=== PATIENT | female | born 1990 | race Caucasian/White ===

== ENCOUNTER → 2019-03-15 12:44 | Outpatient (BNVA) | payer MEDICAID, SELFPAY | PROVIDERS: Family Provider Internal Medicine; PCP Internal Medicine; Visit Provider Social Worker Clinical | DX: F63.81 Intermittent explosive disorder (principal) | CPT/HCPCS: 90834 ==

== ENCOUNTER 2019-03-25 10:59 | Outpatient (CLI) | payer MEDICAID, SELFPAY ==
[2019-03-25 12:16] LABS: Lithium 0.6 mmol/L (0.6-1.2)
== END 2019-03-25 11:00 | disposition home or self-care (01) ==
PROVIDERS: Nurse Practitioner; Family Provider Internal Medicine; PCP Internal Medicine; Visit Provider Family Medicine
DX: F63.81 Intermittent explosive disorder (principal)
CPT/HCPCS: 80178

== ENCOUNTER → 2019-04-05 12:51 | Outpatient (BNVA) | payer MEDICAID, SELFPAY | PROVIDERS: Family Provider Internal Medicine; PCP Internal Medicine; Visit Provider Social Worker Clinical | DX: F63.81 Intermittent explosive disorder (principal); F70 Mild intellectual disabilities | CPT/HCPCS: 90834 ==

== ENCOUNTER → 2019-05-11 13:29 | Outpatient (BNVA) | payer MEDICAID, SELFPAY | PROVIDERS: Family Provider Internal Medicine; PCP Internal Medicine; Visit Provider Nurse Practitioner | DX: F70 Mild intellectual disabilities (principal); F63.81 Intermittent explosive disorder | CPT/HCPCS: 99213 ==

== ENCOUNTER → 2019-05-20 13:44 | Outpatient (BNVA) | payer MEDICAID, SELFPAY | PROVIDERS: Family Provider Internal Medicine; PCP Internal Medicine; Visit Provider Social Worker Clinical | DX: F63.81 Intermittent explosive disorder (principal); F70 Mild intellectual disabilities | CPT/HCPCS: 90834 ==

== ENCOUNTER → 2019-06-09 13:27 | Outpatient (BNVA) | payer MEDICAID, SELFPAY | PROVIDERS: Family Provider Internal Medicine; PCP Internal Medicine; Visit Provider Social Worker Clinical | DX: F63.81 Intermittent explosive disorder (principal); F70 Mild intellectual disabilities | CPT/HCPCS: 90832 ==

== ENCOUNTER → 2019-06-28 08:22 | Outpatient (BNVA) | payer MEDICAID, SELFPAY | PROVIDERS: Family Provider Internal Medicine; PCP Internal Medicine; Visit Provider Social Worker Clinical | DX: F63.81 Intermittent explosive disorder (principal); F70 Mild intellectual disabilities | CPT/HCPCS: 90834 ==

== ENCOUNTER → 2019-07-20 08:07 | Outpatient (BNVA) | payer MEDICAID, SELFPAY | PROVIDERS: Family Provider Internal Medicine; PCP Internal Medicine; Visit Provider Social Worker Clinical | DX: F63.81 Intermittent explosive disorder (principal); F70 Mild intellectual disabilities | CPT/HCPCS: 90834 ==

== ENCOUNTER → 2019-08-05 08:27 | Outpatient (BNVA) | payer MEDICAID, SELFPAY | PROVIDERS: Family Provider Internal Medicine; PCP Internal Medicine; Visit Provider Social Worker Clinical | DX: F63.81 Intermittent explosive disorder (principal); F70 Mild intellectual disabilities | CPT/HCPCS: 90834 ==

== ENCOUNTER → 2019-09-01 07:49 | Outpatient (BNVA) | payer MEDICAID, SELFPAY | PROVIDERS: Family Provider Internal Medicine; PCP Internal Medicine; Visit Provider Social Worker Clinical | DX: F63.81 Intermittent explosive disorder (principal); F70 Mild intellectual disabilities | CPT/HCPCS: 90834 ==

== ENCOUNTER 2019-09-19 12:17 | Emergency (ER) | payer MEDICAID, SELFPAY ==
[2019-09-19 12:35] VITALS: BP 155/100; PULSE 74; RESP 18; TEMP 36.6; O2SAT 100; BMI 47.8
--- NOTE | 2019-09-19 12:37 | XRR_ITS ---
PROCEDURE INFORMATION: Exam: XR Left Ankle Exam date and time: 09/19/2019 12:38 PM Age: 28 years old Clinical indication: Injury or trauma; Fall; Initial encounter; Blunt trauma; Ankle; Left TECHNIQUE: Imaging protocol: XR Left ankle. Views: 3 or more views. COMPARISON: No relevant prior studies available. FINDINGS: Bones/joints: No acute fracture. No dislocation. Normal bone mineralization. No joint effusion. Small calcified enthesophyte at the Achilles tendon insertion. Small plantar calcaneal bone spur. Soft tissues: No soft tissue swelling. No radiopaque foreign body. XR/XR ankle LT min 3V* [id number] IMPRESSION: 1. No acute fracture. Followup imaging recommended in 7-14 days if clinical concern for fracture persists. 2. Incidental/nonacute findings are listed in the report.
--- NOTE | 2019-09-19 12:40 | ED_ITS ---
HPI - Extremity Injury (Lower) General: Chief Complaint: Extremity Injury, Lower Stated Complaint: left leg pain/fall Time Seen by Provider: 09/19/19 12:34 Source: patient Mode of arrival: ambulatory Limitations: no limitations History of Present Illness: HPI Narrative: 28-year-old female who states she is going out to get the mail and stepped on a ledge 2 days ago and twisted her left ankle. States she is continued to have ankle pain since then and sprained that ankle recently. She states she is able to walk on it but it is painful. complaint: ankle injury Review of Systems Const: Denies: fever(s), chills, body aches or change in appetite Eyes: Denies: blurry vision or eye discomfort ENMT: Denies: throat pain or dental pain Card: Denies: chest pain Resp: Denies: dyspnea GI: Denies: abdominal pain, nausea, vomiting or diarrhea : Denies: dysuria Musc: Reports: joint pain Skin/Breast: Denies: rash Neuro: Denies: headache(s) Psych: Denies: depression Malvin/Lymph: Denies: easy bruising All/Imm: Denies: urticaria PFS ED PFSH: Medical History (Updated 09/19/19 @ 12:54 by Juanjose Verdin MD) Intermittent explosive disorder Mild intellectual disabilities Social History (Updated 05/11/19 @ 13:49 by Kaci Dorantes LPN) Smoking and tobacco status: never smoked Current gender identity: Female Physical Exam Const: COMMON NORMALS: no acute distress, patient oriented x3 and healthy appearing HENMT: COMMON NORMALS: normocephalic and atraumatic HEAD & SCALP: normocephalic and atraumatic Eye: COMMON NORMALS: Equal, round and reactive pupils present and EOMs intact bilaterally PUPIL: Yes Equal, round and reactive pupils present Neck/C-Spine: COMMON NORMALS: full ROM and supple Chest: COMMONS NORMALS: normal inspection of the chest and normal palpation of entire chest wall Resp: COMMON NORMALS: normal respiratory effort, No retractions, No use of accessory muscles and clear to auscultation bilaterally AUSCULTATION: clear to auscultation bilaterally Cardio: COMMON NORMALS: regular rate, regular rhythm and No murmurs present (Cardio) RATE: regular rate RHYTHM: regular rhythm GI: COMMON NORMALS: Normal to inspection, nondistended, normoactive bowel sounds present, Soft to palpation, non-tender and no masses PALPATION: Yes Soft to palpation Extremity: COMMON NORMALS: normal to inspection and full ROM NARRATIVE EXTREMITY EXAM: Tender over left lateral ankle Neuro: COMMON NORMALS: patient oriented x3, moves all extremities and no focal motor deficits Psych: COMMON NORMALS: mental status grossly normal, Normal thought process present and cooperative THOUGHT PROCESS: Normal thought process present Skin: COMMON NORMALS: no rashes or lesions noted and no wounds GENERAL SKIN EXAM: no rashes or lesions noted Course Vital Signs: Vital signs: Vital Signs Temperature 97.9 F 09/19/19 12:35 Pulse Rate 74 09/19/19 12:35 Respiratory Rate 18 09/19/19 12:35 Blood Pressure 155/100 09/19/19 12:35 Pulse Oximetry 100 09/19/19 12:35 MDM - Extremity Injury (Lower) MDM Narrative: Medical decision making narrative: Sunni presents here with an ankle sprain. X-ray here shows no fracture. Patient is well-appearing here and we will place an Baltazar wrap and she is stable for discharge. She is to follow-up with worsening. Imaging Data^: xr ankle: My impression: no acute abnormality Discharge Plan Discharge Patient Disposition: Home, Self-Care Clinical Impression: Ankle sprain and strain Condition: Stable Prescriptions: New Naprosyn 500 mg tablet 500 mg PO BID PRN (Reason: pain) Qty: 20 RF: 0 No Action Latuda 20 mg tablet 20 mg PO DAILY RF: 0 potassium chloride 20 mEq tablet extended release 20 meq PO DAILY RF: 0 prazosin 2 mg capsule 2 mg PO .at bed RF: 0 lithium carbonate 300 mg capsule 300 mg PO .in am RF: 0 lithium carbonate 600 mg capsule 600 mg PO .at bed RF: 0 lamotrigine [Lamictal] 200 mg tablet 200 mg PO BID RF: 0 lamotrigine [Lamictal] 100 mg tablet 50 mg PO BID RF: 0 Discharge Orders: Discharge Order (Routine); Ordered 09/19/19 Ordered By: Juanjose Verdin Referrals: Rickey Zacarias MD [Primary Care Provider] - 1-3 days Discharge Diet: Advance as tolerated Discharge Activity: Resume usual activity Coding Level of Care Code ED Linecasting Machine Keyboard Operator for Chg Fwd Exam Comprehensive
[2019-09-19] MEDS: naproxen 500 mg Tablet PO (13:03)
[2019-09-19 13:06] VITALS: BP 154/100; PULSE 75; PULSE 76; RESP 18; O2SAT 96
[2019-09-19 13:26] VITALS: BP 155/100; PULSE 75; RESP 18; O2SAT 96
== END 2019-09-19 13:29 | disposition home or self-care (01) ==
LOC: ER 12:58
PROVIDERS: Emergency Provider Emergency Medicine; PCP Internal Medicine
DX: S93.402A Sprain of unspecified ligament of left ankle, initial encounter (principal); S96.912A Strain of unspecified muscle and tendon at ankle and foot level, left foot, initial encounter; X50.1XXA Overexertion from prolonged static or awkward postures, initial encounter
CPT/HCPCS: 12345; 73610; 99281; 99283

== ENCOUNTER → 2019-09-30 07:51 | Outpatient (BNVA) | payer MEDICAID, SELFPAY | PROVIDERS: PCP Internal Medicine; Visit Provider Social Worker Clinical | DX: F63.81 Intermittent explosive disorder (principal); F70 Mild intellectual disabilities | CPT/HCPCS: 90834 ==

== ENCOUNTER → 2019-10-05 07:41 | Outpatient (BNVA) | payer MEDICAID, SELFPAY | PROVIDERS: PCP Internal Medicine; Visit Provider Nurse Practitioner | DX: F63.81 Intermittent explosive disorder (principal); F70 Mild intellectual disabilities | CPT/HCPCS: 99213 ==

== ENCOUNTER 2019-10-06 09:37 | Outpatient (CLI) | payer MEDICAID, SELFPAY ==
[2019-10-06 10:47] LABS: Lithium 0.7 mmol/L (0.6-1.2)
== END 2019-10-06 09:38 | disposition home or self-care (01) ==
LOC: LAB 09:42
PROVIDERS: PCP Internal Medicine; Visit Provider Nurse Practitioner
DX: F63.81 Intermittent explosive disorder (principal); F70 Mild intellectual disabilities
CPT/HCPCS: 80178

== ENCOUNTER → 2019-10-28 14:07 | Outpatient (BNVA) | payer MEDICAID, SELFPAY | PROVIDERS: PCP Internal Medicine; Visit Provider Social Worker Clinical | DX: F63.81 Intermittent explosive disorder (principal); F70 Mild intellectual disabilities | CPT/HCPCS: 90832 ==

== ENCOUNTER → 2019-11-10 10:00 | Outpatient (BNVA) | payer MEDICAID, SELFPAY | PROVIDERS: PCP Internal Medicine; Visit Provider Social Worker Clinical | DX: F63.81 Intermittent explosive disorder (principal); F70 Mild intellectual disabilities | CPT/HCPCS: 90834 ==

== ENCOUNTER → 2019-11-29 14:00 | Outpatient (BNVA) | payer MEDICAID, SELFPAY | PROVIDERS: PCP Internal Medicine; Visit Provider Nurse Practitioner Family | DX: J06.9 Acute upper respiratory infection, unspecified (principal); Z20.828 Contact with and (suspected) exposure to other viral communicable diseases | CPT/HCPCS: 87635 ==

== ENCOUNTER → 2019-12-29 10:48 | Outpatient (BNVA) | payer MEDICAID, SELFPAY | PROVIDERS: PCP Internal Medicine; Visit Provider Social Worker Clinical | DX: F63.81 Intermittent explosive disorder (principal); F70 Mild intellectual disabilities | CPT/HCPCS: 90834 ==

== ENCOUNTER → 2020-01-19 12:42 | Outpatient (BNVA) | payer MEDICAID, SELFPAY | PROVIDERS: PCP Internal Medicine; Visit Provider Social Worker Clinical | DX: F63.81 Intermittent explosive disorder (principal); F70 Mild intellectual disabilities | CPT/HCPCS: 90834 ==

== ENCOUNTER → 2020-02-21 08:38 | Outpatient (BNVA) | payer MEDICAID, SELFPAY | PROVIDERS: PCP Internal Medicine; Visit Provider Social Worker Clinical | DX: F63.81 Intermittent explosive disorder (principal); F70 Mild intellectual disabilities | CPT/HCPCS: 90834 ==

== ENCOUNTER → 2020-03-20 12:40 | Outpatient (BNVA) | payer MEDICAID, SELFPAY | PROVIDERS: PCP Internal Medicine; Visit Provider Social Worker Clinical | DX: F63.81 Intermittent explosive disorder (principal); F70 Mild intellectual disabilities | CPT/HCPCS: 90834 ==

== ENCOUNTER → 2020-04-06 12:47 | Outpatient (BNVA) | payer MEDICAID, SELFPAY | PROVIDERS: PCP Internal Medicine; Visit Provider Social Worker Clinical | DX: F63.81 Intermittent explosive disorder (principal); F70 Mild intellectual disabilities | CPT/HCPCS: 90834 ==

== ENCOUNTER 2020-04-07 09:02 | Outpatient (CLI) | payer MEDICAID, SELFPAY ==
[2020-04-07 13:08] LABS: Lithium 0.7 mmol/L (0.6-1.2)
== END 2020-04-07 09:03 | disposition home or self-care (01) ==
LOC: LAB 09:16
PROVIDERS: PCP Internal Medicine; Visit Provider Nurse Practitioner
DX: Z79.899 Other long term (current) drug therapy (principal)
CPT/HCPCS: 36415; 80178

== ENCOUNTER → 2020-04-27 08:43 | Outpatient (BNVA) | payer MEDICAID, SELFPAY | PROVIDERS: PCP Internal Medicine; Visit Provider Social Worker Clinical | DX: F63.81 Intermittent explosive disorder (principal); F70 Mild intellectual disabilities | CPT/HCPCS: 90832 ==

== ENCOUNTER → 2020-05-18 12:42 | Outpatient (BNVA) | payer MEDICAID, SELFPAY | PROVIDERS: PCP Internal Medicine; Visit Provider Social Worker Clinical | DX: F63.81 Intermittent explosive disorder (principal); F70 Mild intellectual disabilities | CPT/HCPCS: 90834 ==

== ENCOUNTER → 2020-06-21 11:47 | Outpatient (BNVA) | payer MEDICAID, SELFPAY | PROVIDERS: PCP Internal Medicine; Visit Provider Social Worker Clinical | DX: F63.81 Intermittent explosive disorder (principal); F70 Mild intellectual disabilities | CPT/HCPCS: 90834 ==

== ENCOUNTER → 2020-07-19 12:35 | Outpatient (BNVA) | payer MEDICAID, SELFPAY | PROVIDERS: PCP Internal Medicine; Visit Provider Social Worker Clinical | DX: F63.81 Intermittent explosive disorder (principal); F70 Mild intellectual disabilities | CPT/HCPCS: 90834 ==

== ENCOUNTER → 2020-08-15 13:37 | Outpatient (BNVA) | payer MEDICAID, SELFPAY | PROVIDERS: PCP Internal Medicine; Visit Provider Social Worker Clinical | DX: F63.81 Intermittent explosive disorder (principal); F70 Mild intellectual disabilities | CPT/HCPCS: 90834 ==

== ENCOUNTER → 2020-08-17 14:11 | Outpatient (BNVA) | payer MEDICAID, SELFPAY | PROVIDERS: PCP Internal Medicine; Visit Provider Nurse Practitioner | DX: F70 Mild intellectual disabilities (principal); F63.81 Intermittent explosive disorder | CPT/HCPCS: 99214 ==

== ENCOUNTER → 2020-09-14 13:44 | Outpatient (BNVA) | payer MEDICAID, SELFPAY | PROVIDERS: PCP Internal Medicine; Visit Provider Social Worker Clinical | DX: F63.81 Intermittent explosive disorder (principal); F70 Mild intellectual disabilities | CPT/HCPCS: 90834 ==

== ENCOUNTER → 2020-10-17 10:33 | Outpatient (BNVA) | payer MEDICAID, SELFPAY | PROVIDERS: PCP Internal Medicine; Visit Provider Social Worker Clinical | DX: F63.81 Intermittent explosive disorder (principal); F70 Mild intellectual disabilities | CPT/HCPCS: 90834; 80178 ==

== ENCOUNTER → 2020-11-07 14:00 | Outpatient (BNVA) | payer MEDICAID, SELFPAY | PROVIDERS: PCP Internal Medicine; Visit Provider Social Worker Clinical | DX: F63.81 Intermittent explosive disorder (principal); F70 Mild intellectual disabilities | CPT/HCPCS: 90832 ==

== ENCOUNTER → 2020-11-28 12:52 | Outpatient (BNVA) | payer MEDICAID, SELFPAY | PROVIDERS: PCP Internal Medicine; Visit Provider Social Worker Clinical | DX: F63.81 Intermittent explosive disorder (principal); F70 Mild intellectual disabilities | CPT/HCPCS: 90834 ==

== ENCOUNTER → 2020-12-27 12:42 | Outpatient (BNVA) | payer MEDICAID, SELFPAY | PROVIDERS: PCP Internal Medicine; Visit Provider Social Worker Clinical | DX: F63.81 Intermittent explosive disorder (principal); F70 Mild intellectual disabilities | CPT/HCPCS: 90834 ==

== ENCOUNTER → 2021-01-16 13:55 | Outpatient (BNVA) | payer MEDICAID, SELFPAY | PROVIDERS: PCP Internal Medicine; Visit Provider Social Worker Clinical | DX: F63.81 Intermittent explosive disorder (principal); F70 Mild intellectual disabilities | CPT/HCPCS: 90791 ==

== ENCOUNTER → 2021-02-08 13:20 | Outpatient (BNVA) | payer MEDICAID, SELFPAY | PROVIDERS: PCP Internal Medicine; Visit Provider Nurse Practitioner | DX: F63.81 Intermittent explosive disorder (principal); F70 Mild intellectual disabilities | CPT/HCPCS: 99214 ==

== ENCOUNTER → 2021-02-14 10:25 | Outpatient (BNVA) | payer MEDICAID, SELFPAY | PROVIDERS: PCP Internal Medicine; Visit Provider Internal Medicine | DX: F70 Mild intellectual disabilities (principal) | CPT/HCPCS: 80053; 80061; 83036; 84443 ==

== ENCOUNTER → 2021-02-15 13:50 | Outpatient (BNVA) | payer MEDICAID, SELFPAY | PROVIDERS: PCP Internal Medicine; Visit Provider Social Worker Clinical | DX: F63.81 Intermittent explosive disorder (principal); F70 Mild intellectual disabilities | CPT/HCPCS: 90834 ==

== ENCOUNTER → 2021-03-19 13:03 | Outpatient (BNVA) | payer MEDICAID, SELFPAY | PROVIDERS: PCP Internal Medicine; Visit Provider Social Worker Clinical | DX: F63.81 Intermittent explosive disorder (principal); F70 Mild intellectual disabilities | CPT/HCPCS: 90834 ==

== ENCOUNTER → 2021-04-18 12:46 | Outpatient (BNVA) | payer MEDICAID, SELFPAY | PROVIDERS: PCP Internal Medicine; Visit Provider Social Worker Clinical | DX: F63.81 Intermittent explosive disorder (principal); F70 Mild intellectual disabilities | CPT/HCPCS: 90834 ==

== ENCOUNTER → 2021-04-19 08:55 | Outpatient (BNVA) | payer MEDICAID, SELFPAY | PROVIDERS: PCP Internal Medicine; Visit Provider Nurse Practitioner Women's Health | DX: Z01.419 Encounter for gynecological examination (general) (routine) without abnormal findings (principal) | CPT/HCPCS: 87624 ==

== ENCOUNTER → 2021-05-15 13:44 | Outpatient (BNVA) | payer MEDICAID, SELFPAY | PROVIDERS: PCP Internal Medicine; Visit Provider Social Worker Clinical | DX: F63.81 Intermittent explosive disorder (principal); F70 Mild intellectual disabilities | CPT/HCPCS: 90834 ==

== ENCOUNTER → 2021-06-14 12:46 | Outpatient (BNVA) | payer MEDICAID, SELFPAY | PROVIDERS: PCP Internal Medicine; Visit Provider Social Worker Clinical | DX: F63.81 Intermittent explosive disorder (principal); F70 Mild intellectual disabilities | CPT/HCPCS: 90834 ==

== ENCOUNTER → 2021-07-09 13:50 | Outpatient (BNVA) | payer MEDICAID, SELFPAY | PROVIDERS: PCP Internal Medicine; Visit Provider Social Worker Clinical | DX: F63.81 Intermittent explosive disorder (principal); F70 Mild intellectual disabilities | CPT/HCPCS: 90834 ==

== ENCOUNTER → 2021-08-09 12:49 | Outpatient (BNVA) | payer MEDICAID, SELFPAY | PROVIDERS: PCP Internal Medicine; Visit Provider Nurse Practitioner | DX: F63.81 Intermittent explosive disorder (principal); F70 Mild intellectual disabilities; Z79.899 Other long term (current) drug therapy | CPT/HCPCS: 99214 ==

== ENCOUNTER → 2021-08-13 12:47 | Outpatient (BNVA) | payer MEDICAID, SELFPAY | PROVIDERS: PCP Internal Medicine; Visit Provider Social Worker Clinical | DX: F63.81 Intermittent explosive disorder (principal); F70 Mild intellectual disabilities | CPT/HCPCS: 90834 ==

== ENCOUNTER → 2021-10-17 08:20 | Outpatient (BNVA) | payer MEDICAID, SELFPAY | PROVIDERS: PCP Internal Medicine; Visit Provider Nurse Practitioner | DX: Z79.899 Other long term (current) drug therapy (principal) | CPT/HCPCS: 80061; 80178; 83036 ==

== ENCOUNTER → 2022-01-14 08:59 | Outpatient (BNVA) | payer MEDICAID, SELFPAY | PROVIDERS: PCP Internal Medicine; Visit Provider Nurse Practitioner | DX: Z79.899 Other long term (current) drug therapy (principal) | CPT/HCPCS: 80178 ==

== ENCOUNTER 2022-04-05 10:57 | Outpatient (CLI) | payer MEDICAID, SELFPAY ==
--- NOTE | 2022-04-05 | MR_ITS ---
WS: [id number] MRI BRAIN WITH HIGH-RESOLUTION IMAGING THROUGH THE INTERNAL AUDITORY CANALS WITHOUT CONTRAST HISTORY: HEARING LOSS COMPARISON: None available. TECHNIQUE: Multiplanar, multisequence imaging is performed through the brain. Additional 3 mm imaging performed in multiple planes through the internal auditory canal. Unable to achieve IV access. No acute intracranial hemorrhage, midline shift, edema or mass effect. Bilateral symmetric areas of volume loss and sclerosis involving the posterior parieto-occipital junc tions. This may be from prior trauma. There is mild volume loss in the cortex. There is additional mi ld increased T2 signal in the LEFT frontal lobe cortex. Ventricles and extra-axial spaces are normal. No inferior displacement of cerebellar tonsils. Clivus and pituitary gland are normal. Internal and external auditory canals: Limited as patient was unable to remain still. There is modera te motion artifact. Cranial nerves VII and VIII complexes: Moderate motion artifact. No obvious abnormality. Cerebellopontine angles: Normal. Paranasal sinuses: Normal. Mastoid air cells: Normal. Calvarium and scalp: Normal. MR/MR iac's wo con [id number] IMPRESSION: 1. Study is limited by motion artifact and lack of IV contrast. 2. No abnormal signal or mass effect noted at the cerebellopontine angles or a long the internal auditory canals. 3. Bilateral abnormal signal is symmetric in the posterior parieto-occipital j unction. May be from prior infarcts or trauma. No acute infarct.
== END 2022-04-05 10:58 | disposition home or self-care (01) ==
LOC: RAD 11:04
PROVIDERS: PCP Family Medicine; Visit Provider Otolaryngology
DX: H90.8 Mixed conductive and sensorineural hearing loss, unspecified
CPT/HCPCS: 70551

== ENCOUNTER → 2023-04-25 15:19 | Outpatient (BNVA) | payer MEDICAID, SELFPAY | PROVIDERS: PCP Family Medicine; Visit Provider Nurse Practitioner Women's Health | DX: Z01.419 Encounter for gynecological examination (general) (routine) without abnormal findings (principal); N76.0 Acute vaginitis | CPT/HCPCS: 87624 ==

== ENCOUNTER 2023-07-31 23:28 | Emergency (ER) | payer MEDICAID, SELFPAY ==
[2023-07-31 23:35] VITALS: BP 134/84; PULSE 71; RESP 16; TEMP 36.4; O2SAT 98
--- NOTE | 2023-08-01 00:18 | W.ED.FALL ---
HPI - Fall General: Chief Complaint: Fall Stated Complaint: Fall hit Left side of head Time Seen by Provider: 08/01/23 00:09 History of Present Illness: 32-year-old female comes in today for complaints of injury to the head. Patient states that she was in the shower reaching up to hang her towel over the showerhead when she slipped and fell and hit her head against the side of the tub. Patient denies any loss of consciousness. Patient lives at assisted living facility due to intellectual disability. Patient was brought in for evaluation of head injury. Review of Systems General: Reports: 10 or more systems reviewed and unremarkable except in HPI and below PFSH ED PFSH: Medical History [facility] use On combination antipsychotic drug therapy Psychiatric care No pertinent past medical history neghx: htn,dm,thyroid,dvt/pe Anxiety Seizure disorder Depression Intermittent explosive disorder Mild intellectual disabilities Surgical History Hx of cholecystectomy (~08/2012) Family History Grandfather Heart disease Maternal Hypertension Maternal Denies family history of Colon cancer Ovarian cancer Diabetes Hypercholesteremia Breast cancer Bleeding disorder Uterine cancer Stroke Social History Substance/Drug Use: never Female Reproductive History: Spontaneous abortions: No Physical Exam Const: COMMON NORMALS: alert HENMT: COMMON NORMALS: normocephalic and TM's normal bilaterally HEAD & SCALP: normocephalic and other (Tenderness left parietal area) FACE & SINUS: normal facial exam TYMPANIC MEMBRANE: TM's normal bilaterally MOUTH: Normal oral and palatal mucosa present Neck/C-Spine: COMMON NORMALS: full ROM Resp: COMMON NORMALS: normal respiratory effort Cardio: COMMON NORMALS: regular rate and regular rhythm RATE: regular rate RHYTHM: regular rhythm GI: COMMON NORMALS: non-tender Back/Pelvis: COMMON NORMALS: thoracic and lumbar spine normal to inspection Extremity: COMMON NORMALS: full ROM Neuro: SENSORIUM/ORIENTATION: Yes alert Skin: COMMON NORMALS: turgor normal GENERAL SKIN EXAM: turgor normal Course Vital Signs: Vital signs: Vital Signs Temperature 97.5 F L 07/31/23 23:35 Pulse Rate 71 07/31/23 23:35 Respiratory Rate 16 07/31/23 23:35 Blood Pressure 134/84 07/31/23 23:35 Pulse Oximetry 98 07/31/23 23:35 Oxygen Delivery Me thod Room Air 07/31/23 23:35 MDM - Fall Medical Decision Making 32-year-old female comes in today for complaints of slip and fall with head strike in the tub. On exam patient has no visible injury. Patient does have some tenderness to the left parietal scalp. No depression or crepitus of the skull is noted. Pupils are equal and reactive. No focal neurodeficits. Neck moves without difficulty and with no pain. Differential diagnosis includes not limited to concussion, contusion of the scalp, skull fracture. No signs of serious injury is noted. Reviewed exam with patient and caregivers with recommendations for monitoring and follow-up. They reported understanding and agreed to plan. No radiology studies performed this visit Discharge Plan Discharge Patient Disposition: Home Clinical Impression: Closed head injury without loss of consciousness Qualifiers: Encounter type: initial encounter Qualified Code(s): S09.90XA - Unspecified injury of head, initial encounter Condition: Stable Prescriptions: No Action lamotrigine [Lamictal] 200 mg tablet 200 mg PO BID lamotrigine [Lamictal] 100 mg tablet 50 mg PO BID clobazam [Onfi] 10 mg tablet 15 mg PO BID olopatadine [Clear Eyes Once Daily Allergy] 0.2 % drops 1 drp ophthalmic (eye) DAILY zonisamide [Zonegran] 100 mg capsule 300 mg PO DAILY lacosamide [Vimpat] 200 mg tablet 200 mg PO Q12H metronidazole 500 mg tablet 500 mg PO BID Qty: 14 0RF pantoprazole 40 mg tablet,delayed release (DR/EC) 40 mg PO QAM PRN (Reason: gerd) Qty: 14 3RF albuterol sulfate [ProAir HFA] 90 mcg/actuation HFA aerosol inhaler See Rx Instructions .ROUTE .COMPLEX Qty: 8.5 5RF Dose Instruction: USE TWO INHALATIONS BY MOUTH FOUR TIMES DAILY NEEDED FOR asthma Rx Instructions: USE TWO INHALATIONS BY MOUTH FOUR TIMES DAILY NEEDED FOR asthma nystatin 100,000 unit/gram ointment 1 applic topical DAILY Qty: 30 5RF Triple Antibiotic 3.5mg-400 unit- 5,000 unit/gram ointment See Rx Instructions .ROUTE .COMPLEX Qty: 28.4 0RF Dose Instruction: APPLY ONE APPLICATION TOPICALLY DAILY NEEDED FOR CUTS AND SCRAPES Rx Instructions: APPLY ONE APPLICATION TOPICALLY DAILY NEEDED FOR CUTS AND SCRAPES bismuth subsalicylate [Pepto-Bismol] 262 mg tablet,chewable See Rx Instructions .ROUTE .COMPLEX Qty: 30 6RF Dose Instruction: TAKE TWO TABLETS BY MOUTH every 30 minutes NEEDED FOR diarrhea *do not exceed 16 tablets in 24 hours* Rx Instructions: TAKE TWO TABLETS BY MOUTH every 30 minutes NEEDED FOR diarrhea *do not exceed 16 tablets in 24 hours* amoxicillin 500 mg capsule 500 mg PO ONCE Qty: 4 12RF Rx Instructions: Take 4 capsules by mouth 30 minutes prior to oral procedures or dental appointments. fluconazole 150 mg tablet 150 mg PO Q5D 0 Days Qty: 2 0RF melatonin 5 mg capsule 5 mg PO .HS Qty: 30 2RF norethindrone ac-eth estradiol [Zahraa] 1.5-30 mg-mcg tablet See Rx Instructions .ROUTE .COMPLEX Qty: 63 5RF Dose Instruction: TAKE 1 TABLET BY MOUTH EVERY DAY; TAKING CONTINUOUSLY; CONTROL Rx Instructions: TAKE 1 TABLET BY MOUTH EVERY DAY; TAKING CONTINUOUSLY; CONTROL riboflavin (vitamin B2) [Vitamin B-2] 100 mg tablet See Rx Instructions .ROUTE .COMPLEX Qty: 120 6RF Dose Instruction: TAKE TWO TABLETS BY MOUTH TWICE DAILY FOR SUPPLEMENT Rx Instructions: TAKE TWO TABLETS BY MOUTH TWICE DAILY FOR SUPPLEMENT acetaminophen 325 mg tablet See Rx Instructions .ROUTE .COMPLEX Qty: 120 0RF Dose Instruction: TAKE TWO TABLETS BY MOUTH EVERY 4 HOURS A NEEDED FOR pain OR elevated temperature > 100 Rx Instructions: TAKE TWO TABLETS BY MOUTH EVERY 4 HOURS A NEEDED FOR pain OR elevated temperature > 100 lithium carbonate 300 mg capsule See Rx Instructions .ROUTE .COMPLEX Qty: 60 5RF Dose Instruction: TAKE ONE CAPSULE BY MOUTH TWICE DAILY Rx Instructions: TAKE ONE CAPSULE BY MOUTH TWICE DAILY loratadine 10 mg tablet See Rx Instructions .ROUTE .COMPLEX Qty: 30 5RF Dose Instruction: TAKE 1 TABLET BY MOUTH EVERY DAY FOR ALLERGIES Rx Instructions: TAKE 1 TABLET BY MOUTH EVERY DAY FOR ALLERGIES lurasidone 20 mg tablet See Rx Instructions .ROUTE .COMPLEX Qty: 30 5RF Dose Instruction: TAKE ONE TABLET BY MOUTH EVERY DAY WITH SUPPER FOR MOOD STABILITY *MUST TAKE WITH 360 CALORIE MEAL FOR PROPER ABSORPTION* Rx Instructions: TAKE ONE TABLET BY MOUTH EVERY DAY WITH SUPPER FOR MOOD STABILITY *MUST TAKE WITH 360 CALORIE MEAL FOR PROPER ABSORPTION* prazosin 2 mg capsule See Rx Instructions .ROUTE .COMPLEX Qty: 30 5RF Dose Instruction: TAKE ONE CAPSULE BY MOUTH AT BEDTIME Rx Instructions: TAKE ONE CAPSULE BY MOUTH AT BEDTIME escitalopram oxalate 20 mg tablet See Rx Instructions .ROUTE .COMPLEX Qty: 30 5RF Dose Instruction: TAKE ONE TABLET BY MOUTH EVERY DAY Rx Instructions: TAKE ONE TABLET BY MOUTH EVERY DAY WesTab Plus 27 mg iron- 1 mg tablet See Rx Instructions .ROUTE .COMPLEX Qty: 90 0RF Dose Instruction: TAKE 1 TABLET BY MOUTH EVERY DAY FOR SUPPLEMENT Rx Instructions: TAKE 1 TABLET BY MOUTH EVERY DAY FOR SUPPLEMENT potassium chloride 20 mEq tablet,ER particles/crystals See Rx Instructions .ROUTE .COMPLEX Qty: 30 3RF Dose Instruction: TAKE 1 TABLET BY MOUTH AT BEDTIME HYPOKALEMIA Rx Instructions: TAKE 1 TABLET BY MOUTH AT BEDTIME HYPOKALEMIA Discharge Orders: Discharge ED (Routine); Ordered 08/01/23 Ordered By: Hema Mederos Referrals: Keshawn Gunter DO [Primary Care Provider] - Discharge Diet: Usual diet Discharge Activity: Increase activity as tolerated Patient Instructions: Head Injury (ED) Activity Restrictions/Additional Instructions: Home and rest. Activity as tolerated. Acetaminophen and/or ibuprofen as needed for headache. Encourage plenty of fluids. Follow-up with primary care as needed. Return to ED for worsening symptoms such as severe headache, persistent nausea and vomiting, or new concerns. Coding Level of Care Code ED Healthcare Representative for Susy Cruz
[2023-08-01 01:06] VITALS: PULSE 65; RESP 16; O2SAT 99
== END 2023-08-01 01:08 | disposition home or self-care (01) ==
PROVIDERS: Emergency Provider Nurse Practitioner Family; PCP Family Medicine
DX: S09.8XXA Other specified injuries of head, initial encounter (principal); W18.2XXA Fall in (into) shower or empty bathtub, initial encounter
CPT/HCPCS: 99281

== ENCOUNTER → 2023-09-03 10:47 | Outpatient (BNVA) | payer MEDICAID, SELFPAY | PROVIDERS: PCP Family Medicine; Visit Provider Registered Nurse Neonatal Intensive Care | DX: J02.9 Acute pharyngitis, unspecified (principal) | CPT/HCPCS: 87880 ==

== ENCOUNTER → 2024-01-30 11:00 | Outpatient (BNVA) | payer OTHER, SELFPAY | PROVIDERS: PCP Family Medicine; Visit Provider Nurse Practitioner | DX: Z79.899 Other long term (current) drug therapy | CPT/HCPCS: 80178; 84443 ==

== ENCOUNTER 2024-09-23 15:04 | Emergency (ER) | payer MEDICAID, SELFPAY ==
[2024-09-23 15:23] VITALS: BP 133/71; PULSE 79; RESP 14; TEMP 36.9; O2SAT 98; BMI 39.8
--- NOTE | 2024-09-23 15:28 | XR_ITS ---
WS: [id number] XR wrist LT min 3V* [id number] REASON FOR EXAM: fell, wrist pain FINDINGS: Oblique fracture through the distal metaphysis of the radius with extension into the medial articular surface of the radius and into the radial ulnar joint. Minimal comminution and mild displacement. No significant angulation. Minimal foreshortening of the radius. XR/XR wrist LT min 3V* [id number] IMPRESSION: Left wrist fracture as above.
[2024-09-23 18:00] VITALS: BP 139/86; PULSE 68; O2SAT 98
[2024-09-23 18:24] VITALS: BP 139/86; PULSE 68; O2SAT 98
--- NOTE | 2024-09-23 23:20 | ED_ITS ---
HPI - Extremity Problem General: Chief complaint: Extremity Injury, Upper Stated complaint: swellon wrist Time Seen by Provider: 09/23/24 16:09 History of Present Illness: 33-year-old female patient presents to [facility] emergency department with wrist pain. Patient states that she was walking and slipped on the grass landing on her wrist. Patient states she did not hit her head and did not have any loss of consciousness. Patient denies any other trauma or injury Related Data Home Medications ?Medication ?Instructions ?Recorded ?Confirmed clobazam 10 mg tablet (Onfi) 15 mg PO BID 02/09/20 olopatadine 0.2 % eye drops (Clear 1 drp ophthalmic (e ye) DAILY 01/10/22 08/24/24 Eyes Once Daily Allergy) lamotrigine 100 mg tablet 50 mg PO BID 04/23/22 (Lamictal) lacosamide 200 mg tablet (Vimpat) 200 mg PO Q12H for s eizures 11/14/22 08/24/24 zonisamide 100 mg capsule 300 mg PO DAILY 11/14/22 (Zonegran) Previous Rx's ?Medication ?Instructions ?Recorded nystatin 100,000 unit/gram topical See Rx Instructions .Route 10/21/23 ointment .COMPLEX #30 grams bismuth subsalicylate 262 mg See Rx Instructions .Rout e 01/07/24 chewable tablet (Pepto-Bismol) .COMPLEX #30 tabs pantoprazole 40 mg tablet,delayed See Rx Instructions .Route 02/10/24 release .COMPLEX #30 tabs menthol 5.8 mg lozenges (Cough See Rx Instructions .[place] 03/16/24 Drops) .COMPLEX #30 bay norethindrone acetate 1.5 See Rx Instructions .Route 0 04/30/24 mg-ethinyl estradiol 30 mcg tablet .COMPLEX #63 tabs (Zahraa) acetaminophen 325 mg tablet See Rx Instructions .Route 05/03/24 .COMPLEX #120 tabs escitalopram oxalate 20 mg tablet See Rx Instructions .Route 06/18/24 .COMPLEX #30 tabs lithium carbonate 300 mg capsule See Rx Instructions . Route 06/18/24 .COMPLEX #90 caps lurasidone 20 mg tablet See Rx Instructions .Route 0 06/18/24 .COMPLEX #30 tabs prazosin 2 mg capsule See Rx Instructions .Route 0 06/18/24 .COMPLEX #30 caps potassium chloride 20 mEq See Rx Instructions .Route 0 06/21/24 tablet,extended release(part/cryst) .COMPLEX #30 tabs loratadine 10 mg tablet See Rx Instructions .Route 0 06/29/24 .COMPLEX #30 tabs vitamin with calcium See Rx Instructions .Rou te 07/12/24 no.72-iron 27 mg-folic acid 1 mg .COMPLEX #90 tabs tablet (WesTab Plus) melatonin 5 mg tablet See Rx Instructions .Route 0 08/03/24 .COMPLEX #30 tabs fluticasone propionate 50 1 spray intranasal BID PRN a llergy 08/04/24 mcg/actuation nasal symptoms #16 grams spray,suspension (Flonase Allergy Relief) neomycin-bacitracn Zn-polymyx 3.5 See Rx Instructions .Route 08/17/24 mg-400 unit-5,000 unit/gram top .COMPLEX #28.4 grams oint (Triple Antibiotic) riboflavin (vitamin B2) 100 mg See Rx Instructions .[place] 08/17/24 tablet (Vitamin B-2) .COMPLEX #120 tabs albuterol sulfate 90 mcg/actuation See Rx Instructions .Route 08/18/24 aerosol inhaler (Ventolin HFA) .COMPLEX #18 grams Allergies Allergy/AdvReac Type Severity Reaction Status Date / Time No Known Allergies Allergy Verified 06/18/24 12:59 Review of Systems General: Reports: 10 or more systems reviewed and unremarkable except in HPI and below PFSH ED PFSH: Medical History [place] use On combination antipsychotic drug therapy Psychiatric care No pertinent past medical history neghx: htn,dm,thyroid,dvt/pe Anxiety Seizure disorder Depression Intermittent explosive disorder Mild intellectual disabilities Surgical History Hx of cholecystectomy (~08/2012) Family History Grandfather Heart disease Maternal Hypertension Maternal Denies family history of Colon cancer Ovarian cancer Diabetes Hypercholesteremia Breast cancer Bleeding disorder Uterine cancer Stroke Social History Smoking and tobacco/nicotine status: never used tobacco/nicotine Substance/Drug Use: never Female Reproductive History: Spontaneous abortions: No Physical Exam Narrative: EXAM NARRATIVE: General: Cooperative patient in no apparent distress. Well developed. intellectually impaired. HEENT: Normocephalic, Atraumatic. External ears normal. Nasal passages patent without drainage. MMM. Heart: RRR. Resp: LCTA. No respiratory distress, no use of accessory muscles. Abd: Soft, non-tender. Non-distended. Extremities: No edema. Tenderness to left wrist Skin: No rash or lesions on exposed areas. Neuro: No focal motor or sensory loss. Gait is normal. Course Vital Signs: Vital signs: Vital Signs Temperature 98.5 F 09/23/24 15:23 Pulse Rate 68 09/23/24 18:24 Respiratory Rate 14 09/23/24 15:23 Blood Pressure 139/86 09/23/24 18:24 Pulse Oximetry 98 09/23/24 18:24 Oxygen Delivery Me thod Room Air 09/23/24 15:23 MDM - Extremity (Nontraumatic) Medical Decision Making 33-year-old female patient presents to the emergency department with wrist pain. Patient states that she was walking and slipped on the grass landing on her wrist. Patient states she did not hit her head and did not have any loss of consciousness. Patient denies any other trauma or injury patient is neurovascularly intact distally patient does have a fracture noted to the distal radius. OCL splint was applied patient remains neurovascularly intact distally. Discussed these findings with caregiver patient is to follow-up with Ortho for a recheck. Patient remains neurovascular intact post splint application patient does not want any narcotics states that she will take Motrin at home All radiology interpretation(s) finalized by discharge Discharge Plan Discharge Patient Disposition: Home Clinical Impression: Distal radius fracture, left Qualifiers: Encounter type: initial encounter Fracture type: closed Fracture morphology: unspecified fracture morphology Qualified Code(s): S52.502A - Unspecified fracture of the lower end of left radius, initial encounter for closed fracture Condition: Stable Prescriptions: No Action lamotrigine [Lamictal] 100 mg tablet 50 mg PO BID clobazam [Onfi] 10 mg tablet 15 mg PO BID olopatadine [Clear Eyes Once Daily Allergy] 0.2 % drops 1 drp ophthalmic (eye) DAILY zonisamide [Zonegran] 100 mg capsule 300 mg PO DAILY lacosamide [Vimpat] 200 mg tablet 200 mg PO Q12H norethindrone ac-eth estradiol [Zahraa] 1.5-30 mg-mcg tablet See Rx Instructions .ROUTE .COMPLEX Qty: 63 5RF Dose Instruction: TAKE 1 TABLET BY MOUTH EVERY DAY; TAKING CONTINUOUSLY; CONTROL Rx Instructions: TAKE 1 TABLET BY MOUTH EVERY DAY; TAKING CONTINUOUSLY; CONTROL escitalopram oxalate 20 mg tablet See Rx Instructions .ROUTE .COMPLEX Qty: 30 5RF Dose Instruction: TAKE ONE TABLET BY MOUTH EVERY DAY Rx Instructions: TAKE ONE TABLET BY MOUTH EVERY DAY lithium carbonate 300 mg capsule See Rx Instructions .ROUTE .COMPLEX Qty: 90 5RF Dose Instruction: TAKE ONE CAPSULE BY MOUTH THREE TIMES DAILY FOR MOOD STABILITY Rx Instructions: TAKE ONE CAPSULE BY MOUTH THREE TIMES DAILY FOR MOOD STABILITY prazosin 2 mg capsule See Rx Instructions .ROUTE .COMPLEX Qty: 30 5RF Dose Instruction: TAKE ONE CAPSULE BY MOUTH AT BEDTIME Rx Instructions: TAKE ONE CAPSULE BY MOUTH AT BEDTIME lurasidone 20 mg tablet See Rx Instructions .ROUTE .COMPLEX Qty: 30 5RF Dose Instruction: TAKE ONE TABLET BY MOUTH EVERY DAY WITH SUPPER FOR MOOD STABILITY *MUST TAKE WITH 360 CALORIE MEAL FOR PROPER ABSORPTION* Rx Instructions: TAKE ONE TABLET BY MOUTH EVERY DAY WITH SUPPER FOR MOOD STABILITY *MUST TAKE WITH 360 CALORIE MEAL FOR PROPER ABSORPTION* nystatin 100,000 unit/gram ointment See Rx Instructions .ROUTE .COMPLEX Qty: 30 5RF Dose Instruction: APPLY 1 APPLICATION TOPICALLY DAILY NEEDED FOR CANDIDIASIS VAGINITIS Rx Instructions: APPLY 1 APPLICATION TOPICALLY DAILY NEEDED FOR CANDIDIASIS VAGINITIS bismuth subsalicylate [Pepto-Bismol] 262 mg tablet,chewable See Rx Instructions .ROUTE .COMPLEX Qty: 30 6RF Dose Instruction: TAKE TWO TABLETS BY MOUTH every 30 minutes NEEDED FOR diarrhea *do not exceed 16 tablets in 24 hours* Rx Instructions: TAKE TWO TABLETS BY MOUTH every 30 minutes NEEDED FOR diarrhea *do not exceed 16 tablets in 24 hours* pantoprazole 40 mg tablet,delayed release (DR/EC) See Rx Instructions .ROUTE .COMPLEX Qty: 30 3RF Dose Instruction: TAKE 1 TABLET BY MOUTH NEEDED FOR GERD Rx Instructions: TAKE 1 TABLET BY MOUTH NEEDED FOR GERD Cough Drops 5.8 mg lozenge See Rx Instructions .ROUTE .COMPLEX Qty: 30 12RF Dose Instruction: USE 1 LOZENGE BY MOUTH EVERY 2 HOURS NEEDED FOR COUGH Rx Instructions: USE 1 LOZENGE BY MOUTH EVERY 2 HOURS NEEDED FOR COUGH acetaminophen 325 mg tablet See Rx Instructions .ROUTE .COMPLEX Qty: 120 0RF Dose Instruction: TAKE TWO TABLETS BY MOUTH EVERY 6 HOURS NEEDED FOR PAIN OR TEMP OVER 100 Rx Instructions: TAKE TWO TABLETS BY MOUTH EVERY 6 HOURS NEEDED FOR PAIN OR TEMP OVER 100 potassium chloride 20 mEq tablet,ER particles/crystals See Rx Instructions .ROUTE .COMPLEX Qty: 30 3RF Dose Instruction: TAKE 1 TABLET BY MOUTH AT BEDTIME HYPOKALEMIA Rx Instructions: TAKE 1 TABLET BY MOUTH AT BEDTIME HYPOKALEMIA loratadine 10 mg tablet See Rx Instructions .ROUTE .COMPLEX Qty: 30 5RF Dose Instruction: TAKE 1 TABLET BY MOUTH EVERY DAY FOR ALLERGIES Rx Instructions: TAKE 1 TABLET BY MOUTH EVERY DAY FOR ALLERGIES WesTab Plus 27 mg iron- 1 mg tablet See Rx Instructions .ROUTE .COMPLEX Qty: 90 0RF Dose Instruction: TAKE 1 TABLET BY MOUTH EVERY DAY FOR SUPPLEMENT Rx Instructions: TAKE 1 TABLET BY MOUTH EVERY DAY FOR SUPPLEMENT melatonin 5 mg tablet See Rx Instructions .ROUTE .COMPLEX Qty: 30 5RF Dose Instruction: TAKE ONE TABLET BY MOUTH AT BEDTIME FOR SLEEP Rx Instructions: TAKE ONE TABLET BY MOUTH AT BEDTIME FOR SLEEP fluticasone propionate [Flonase Allergy Relief] 50 mcg/actuation spray,suspension 1 spray intranasal BID PRN (Reason: allergy symptoms) Qty: 16 2RF Rx Instructions: administer into each nostril Triple Antibiotic 3.5mg-400 unit- 5,000 unit/gram ointment See Rx Instructions .ROUTE .COMPLEX Qty: 28.4 0RF Dose Instruction: APPLY ONE APPLICATION TOPICALLY DAILY NEEDED FOR CUTS AND SCRAPES Rx Instructions: APPLY ONE APPLICATION TOPICALLY DAILY NEEDED FOR CUTS AND SCRAPES riboflavin (vitamin B2) [Vitamin B-2] 100 mg tablet See Rx Instructions .ROUTE .COMPLEX Qty: 120 6RF Dose Instruction: TAKE TWO TABLETS BY MOUTH TWICE DAILY FOR SUPPLEMENT Rx Instructions: TAKE TWO TABLETS BY MOUTH TWICE DAILY FOR SUPPLEMENT albuterol sulfate [Ventolin HFA] 90 mcg/actuation HFA aerosol inhaler See Rx Instructions .ROUTE .COMPLEX Qty: 18 5RF Dose Instruction: USE TWO INHALATIONS BY MOUTH FOUR TIMES DAILY NEEDED FOR ASTHMA Rx Instructions: USE TWO INHALATIONS BY MOUTH FOUR TIMES DAILY NEEDED FOR ASTHMA Discharge Orders: Discharge ED (Routine); Ordered 09/23/24 Ordered By: Rochelle Rodriguez Referrals: Keshawn Gunter DO [Primary Care Provider, Family Practice] Discharge Diet: Advance as tolerated Discharge Activity: Limit activity as instructed Patient Instructions: Arm Fracture in Children (DC), Opioid Safety, Pain Management, Patient Portal & Kareem Instructions Activity Restrictions/Additional Instructions: Please follow up with ortho Keep slint in place Returm to er with any worsening f symptoms or concerns. Print Language: Citizen [place] Coding Level of Care Code ED Decorator Consultant for Susy Cruz
== END 2024-09-23 18:25 | disposition home or self-care (01) ==
PROVIDERS: Emergency Provider Registered Nurse; PCP Family Medicine
DX: S52.502A Unspecified fracture of the lower end of left radius, initial encounter for closed fracture (principal); W01.0XXA Fall on same level from slipping, tripping and stumbling without subsequent striking against object, initial encounter
CPT/HCPCS: 29105; 36415; 73110; 99283

== ENCOUNTER → 2024-09-29 10:06 | Outpatient (BNVA) | payer MEDICAID, SELFPAY | PROVIDERS: PCP Family Medicine; Visit Provider Student in an Organized Health Care Education/Training Program | DX: S52.502A Unspecified fracture of the lower end of left radius, initial encounter for closed fracture (principal); W01.0XXA Fall on same level from slipping, tripping and stumbling without subsequent striking against object, initial encounter | CPT/HCPCS: 73110 ==

== ENCOUNTER 2024-09-29 15:19 | Outpatient (CLI) | payer MEDICAID, SELFPAY | END 2024-09-29 15:20 | disposition home or self-care (01) | LOC: SPT 15:20 | PROVIDERS: PCP Family Medicine; Visit Provider Student in an Organized Health Care Education/Training Program | DX: Z46.89 Encounter for fitting and adjustment of other specified devices (principal); S52.502D Unspecified fracture of the lower end of left radius, subsequent encounter for closed fracture with routine healing; X58.XXXD Exposure to other specified factors, subsequent encounter | CPT/HCPCS: L3982 ==

== ENCOUNTER → 2024-10-05 09:31 | Outpatient (BNVA) | payer MEDICAID, SELFPAY | PROVIDERS: PCP Family Medicine; Visit Provider Physician Assistant | DX: S52.502A Unspecified fracture of the lower end of left radius, initial encounter for closed fracture (principal); X58.XXXA Exposure to other specified factors, initial encounter | CPT/HCPCS: 73110; 99213 ==

== ENCOUNTER 2024-10-07 07:37 | Day surgery (SDC) | payer MEDICAID, SELFPAY ==
[2024-10-07] VITALS (9 sets, daily range): BP systolic 142–173; BP diastolic 85–111; PULSE 70–78; RESP 17–25; TEMP 36.1–37.1; O2SAT 93–96; BMI 49.0
--- NOTE | 2024-10-07 | XR_ITS ---
WS: [id number] XR wrist LT min 3V* [id number] REASON FOR EXAM: MARGO IMAGES FINDINGS: Plate and screw fixation of distal oblique radial metaphyseal fracture extending into the medial joint space. Surgical appliances are intact and in proper position and alignment. Fracture fragments are in good apposition and alignment. XR/XR wrist LT min 3V* [id number] IMPRESSION: Internal fixation of left wrist fracture as above.
--- NOTE | 2024-10-07 08:13 | W.PM.OPSUD ---
Surgery/Procedure H&P Update DATE OF PROCEDURE: October 07, 2024 DATE H&P PERFORMED: 10/05/24 H&P UPDATE INFORMATION: I have reviewed H&P completed within last 30 days, I have examined patient prior to procedure and No changes to prior documentation PREOP DIAGNOSIS: Displaced left distal radius intra-articular fracture PRIMARY INDICATION FOR PROCEDURE: Displaced left distal radius intra-articular fracture PLANNED PROCEDURE: Operation Date: 10/07/24 09:50 Proposed Procedures p Open Reduction Internal Fixation LEFT Distal Radius(Left) - Saturnino Clemons DO
--- NOTE | 2024-10-07 08:19 | ANES.PREANE2 ---
Pre-Anesthetic Assessment Height/Weight: Height 5 ft 3 in Weight 277 lb Temp Pulse Resp BP Pulse Ox O2 Del Method 97.0 F L 73 18 142/99 96 Room Air 10/07/24 08:04 10/07/24 08:04 10/07/24 08:04 10/07/24 08:04 10/07/24 08:04 10/07/24 08:05 Preop Diagnosis: Displaced left distal radius intra-articular fracture Operation Date: 10/07/24 09:50 Proposed Procedures p Open Reduction Internal Fixation LEFT Distal Radius(Left) - Saturnino Kenton, DO Was Beta Nishant taken within 24 hours: N/A Was Clonidine taken within 24 hours: N/A Last intake: Intake Last Liquid Date 10/06/24 Last Liquid Time 20:00 Last Solid Date 10/06/24 Last Solid Time 20:00 Social No alcohol and No tobacco Exam alert, oriented x 3, clear to auscultation bilaterally and regular rate & rhythm Airway Submandibular: within normal limits Cervical ROM: within normal limits Mallampati: Class II Dentition: full Comments: Comments: Poor dentition, denies any loose Anesthetic Plan ASA status: 3 Anesthesia: General and Regional (specify below) Other: No prior issues with anesthesia NPO since yesterday evening Patient has hearing loss Mild intellectual disability but is ANO x 3 History of GERD on Protonix Patient is on lithium for intermittent explosive disorder Patient states that she had a heart issues as a child but denies any surgeries. RRR on auscultation. Denies any SOB with exertion Plan for general anesthesia with peripheral nerve block Medications/Allergies Home Medications ?Medication ?Instructions ?Recorded ?Confirmed ?Last Taken ?Type clobazam 10 mg tablet (Onfi) 15 mg PO BID 02/09/20 10/07/24 10/07/24 06:30 History lamotrigine 100 mg tablet 250 mg PO BID 04/23/22 10/07/24 10/07/24 06:30 History (Lamictal) lacosamide 200 mg tablet (Vimpat) 200 mg PO Q12H for seizures 11/14/22 10/07/24 10/07/24 06:30 History zonisamide 100 mg capsule 300 mg PO DAILY 11/14/22 10/06/24 10/06/24 History (Zonegran) nystatin 100,000 unit/gram topical See Rx Instructions .Route 08/13/24 07/30/25 Unknown Rx ointment .COMPLEX #30 grams fluticasone propionate 50 1 spray intranasal BID PRN allergy 08/04/24 10/06/24 Unknown Rx mcg/actuation nasal symptoms #16 grams spray,suspension (Flonase Allergy Relief) left wrist fast form #1 ea 09/29/24 10/05/24 Unknown Rx acetaminophen 325 mg tablet 650 mg PO PRN 10/06/24 10/06/24 10/06/24 History albuterol sulfate 90 mcg/actuation 2 puff inhalation QID PRN asthma 10/06/24 10/06/24 Unknown History aerosol inhaler (Ventolin HFA) bismuth subsalicylate 262 mg 2 tab PO [id number] PRN Diarrhea 10/06/24 10/06/24 Unknown History chewable tablet (Pepto-Bismol) escitalopram oxalate 20 mg tablet 20 mg PO DAILY 10/06/24 10/06/24 10/06/24 History lithium carbonate 300 mg capsule 300 mg PO 3XD 10/06/24 10/07/24 10/07/24 06:30 History loratadine 10 mg tablet 10 mg PO DAILY 10/06/24 10/07/24 10/07/24 06:30 History lurasidone 20 mg tablet 20 mg PO DAILY 10/06/24 10/06/24 10/06/24 History melatonin 5 mg tablet 5 mg PO BEDTIME 10/06/24 10/06/24 10/05/24 History menthol 5.8 mg lozenges (Cough 5.8 mg PO Q2H PRN Cough 10/06/24 10/06/24 Unknown History Drops) neomycin-bacitracn Zn-polymyx 3.5 1 applic topical PRN PRN cuts and 10/06/24 10/06/24 Unknown History mg-400 unit-5,000 unit/gram top scrapes oint (Triple Antibiotic) norethindrone acetate 1.5 1 tab PO DAILY 10/06/24 10/07/24 10/07/24 06:30 History mg-ethinyl estradiol 30 mcg tablet (Zahraa) pantoprazole 40 mg tablet,delayed 40 mg PO DAILY PRN Abdominal Pain 10/06/24 10/06/24 Unknown History release potassium chloride 20 mEq 20 meq PO DAILY 10/06/24 10/06/24 10/05/24 History tablet,extended release(part/cryst) prazosin 2 mg capsule 2 mg PO BEDTIME 10/06/24 10/06/24 10/05/24 History vitamins with calcium 1 tab PO DAILY 10/06/24 10/06/24 10/05/24 History no.72-iron 27 mg-folic acid 1 mg tablet (WesTab Plus) riboflavin (vitamin B2) 100 mg 200 mg PO BID 10/06/24 10/07/24 10/07/24 06:30 History tablet (Vitamin B-2) hydrocodone 5 mg-acetaminophen 325 1 tab PO Q6H PRN pain 5 days #20 10/07/24 Unknown Rx mg tablet tabs Allergies Allergy/AdvReac Type Severity Reaction Status Date / Time No Known Allergies Allergy Verified 10/07/24 07:55 [facility] Anesthesia Medical History (Updated 10/06/24 @ 05:29 by Keshawn Gunter DO) [place] use On combination antipsychotic drug therapy Psychiatric care No pertinent past medical history neghx: htn,dm,thyroid,dvt/pe Anxiety Seizure disorder Depression Intermittent explosive disorder Mild intellectual disabilities Surgical History Hx of cholecystectomy (~08/2012) Family History Grandfather Heart disease Maternal Hypertension Maternal Denies family history of Colon cancer Ovarian cancer Diabetes Hypercholesteremia Breast cancer Bleeding disorder Uterine cancer Stroke Social History Smoking and tobacco/nicotine status: never used tobacco/nicotine Substance/Drug Use: never Female Reproductive History Spontaneous abortions: No
[2024-10-07] MEDS: acetaminophen 1,000 MG/100 ML PIGGYBACK 400 MG IV (08:24)
[2024-10-07 08:49] LABS: Anion Gap 16.2 (5-19); Blood Urea Nitrogen 13 mg/dL (6-20); Calcium 10.2 mg/dL (8.5-10.5); Carbon Dioxide 21 mmol/L (22-29); Chloride 113 mmol/L (98-107); Creatinine Clr Calc Pharmacy 73.0257; Glucose 111 mg/dL (65-115); Osmolality Calculated 303 mOsm/kg (285-295); Potassium 4.2 mmol/L (3.5-5.1); Sodium 146 mmol/L (136-145)
[2024-10-07 09:00] LABS: OR HCG Qualitative Urine Negative (Negative)
[2024-10-07] MEDS: ceFAZolin 3,000 MG in sodium chloride 0.9% (plus) 100 ML 200 MG IV (09:49)
--- NOTE | 2024-10-07 10:04 | ANES.PROC ---
Anesthesia Procedures Procedure/Date: 10/07/24 Nerve Block ^: Nerve Block 1: Main Anesthesia: general anesthesia Time Out Performed: Yes Consent: requested by attending/covering physician and from patient Laterality: Left Nerve block location: supraclavicular Anesthesia monitors applied: pulse oximetry, EKG, BP cuff and oxygen Nerve block position: supine Anesthetic Used: ropivicaine 0.5% Amount of anesthesia used (mL): 30 Ultrasound used to: recognize landmarks Nerve Stimulator Used?: Yes Interscalene/Femoral BLK: other needle (pjunk 4inch) Injection: neg aspiration of heme Patient Tolerated Procedure: well Complications: none Additional Comments: decadron 4mg added to block
--- NOTE | 2024-10-07 10:59 | PM.OP ---
Operative Report Date of procedure: October 07, 2024 Surgeon: Saturnino Clemons DO [employer] Supervisor: Alexi Clemons PA-C: PA was necessary for assistance in this case with hand positioning to execute the procedure, assistance with fracture reduction as well as assistance with fracture fixation and instrumentation, retraction and protection of neurovascular structures as well as to assist with wound closure and dressing and splint application. Procedure: Preop Diagnosis ?Left?distal?radius fracture ? Procedure: Post-op diagnosis: Same, 2 part intra-articular Procedure done: Left?distal?radius open reduction internal fixation, 2-part intra-articular Implants: ?Arthrex left 3-hole standard volar locking plate Combination of locking and nonlocking screws 2.7 mm?distal Combination of locking and nonlocking screws 3.5 mm proximal Surgeon: Saturnino Clemons DO Anesthesia: General and nerve Block (Regional) Estimated blood loss: 10 mL Tourniquet time: 28 minutes IV fluids: See anesthesia record Complications: None Findings: See operative report narrative Condition: stable Disposition: same day Brief History: Patient is a 33-year-old female who presented to my office for a [id number] left?distal?radius fracture.? Patient has translation as well as intra-articular involvement with greater than 2 mm of joint step-off. At this point time through shared decision making patient like to proceed with a left?distal?radius?ORIF.? We had a detailed discussion in the office about nonoperative and operative intervention.? At this point time I feel through shared decision? best option would be open reduction internal fixation she is active and inulin given the joint step-off for about early onset arthritis which we talked about in detail?? as result through shared decision making patient would like to proceed with?ORIF?left?distal?radius fracture.? Detail the risk benefits complication alternatives to treatment option.? Understanding risk for surgery patient elects to proceed with surgical intervention.? All questions been answered at this time. Procedure: Patient seen and evaluated in the preoperative holding area.? Consent reviewed and signed with patient.? Correct extremities were marked and consent was reviewed and signed.? Patient was seen and evaluated by anesthesia department.? Underwent regional anesthesia. Once cleared for surgery pt was taken back to the operative suite.? Patient was then transported into the operative suite and kept on the OR gurney, all bony prominences well-padded patient was appropriate secured to bed in supine position.? An armboard was applied to the left upper extremity.? The left upper extremity had a nonsterile tourniquet applied.? Patient subsequently was then prepped and draped in standard orthopedic fashion she underwent anesthesia per the anesthesia department.? A final timeout was performed.? Patient received appropriate preoperative antibiotics. Esmarch was used exsanguinate the left upper extremity and tourniquet was insufflated to 250 mmHg. A standard modified FCR volar approach was performed to the left?distal?radius.? Sharp scalpel incision through skin and subcutaneous tissue.? I then switched to Littler dissection scissors identify the FCR tendon releases out of the sheath both proximally and?distally mobilized the tendon ulnarly and then subsequently incised the floor of the FCR tendon sheath with care to just incise the floor.? I then bluntly sweep the FPL tendon muscle belly ulnarly and placed blunt self-retaining retractor.? At this point time I direct visualization of the pronator quadratus which was incised in standard L fashion off the?radial and?distal?border in the?distal?radius and fracture site was scraped clean of interposed muscle belly.? I then identified the 2 part intra-articular?distal?radius fracture.? This was subsequently opened above and freed of interposing muscle belly as well as periosteum and fracture hematoma.? I did have to utilize my [place] which was placed through the fracture pattern and disengage the fracture and performed manual manipulation and anatomic reduction of the?distal?radius fracture and jain of joint surface. ?Once satisfied with reduction and had appropriate anatomic reduction of the volar cortex.? This was confirmed with mini C arm in multiple orthogonal imaging.? At this point time? I selected a Arthrex anatomic?distal?radius plate utilizing a standard 3-hole plate which would have appropriate spread?distally.? This was then placed up to the?distal?radius while maintaining my reduction, pins were placed?distally and proximally to confirm appropriate placement of the plate along the?distal?radius.? Minor adjustments were made and once I was satisfied I then subsequently drilled a bicortical 3.5 screw proximally in the oblong hole to allow for appropriate sliding of the?distal?radius plate appropriately to perfect position on the?distal?radius.? This had excellent fixation and purchase and brought the plate to bone.? While maintaining my reduction I then confirmed in multiple orthogonal imaging that my plate was in appropriate position.? Once satisfied with my position I then subsequently placed the peek targeting guide on the?distal?locking screws with Arthrex.? The locking guide was then subsequently loaded and I subsequently drilled and placed a fully threaded cortical screw to compress the plate to bone for the?distal?fracture fragment.? This was performed with plan to then remove this and placed a shorter locking screw had bicortical fixation with excellent purchase and appropriate reduction of my volar tilt and bringing plate to bone of the?distal?fragment and plate.? Once I was satisfied with my plate position as well as reduction of the?distal?radius which was confirmed on AP oblique and lateral imaging I then subsequently drilled measured and placed 4 locking screws around this cortical screw.? Then I subsequently removed the cortical screw and placed a shorter locking screw that did not penetrate the dorsal cortex.?? This completed my?distal?fixation.? I did utilize mini C arm to confirm appropriate placement of the screws these were all within the?distal?radius and no joint involvement within the?radiocarpal joint or the DRUJ.? These had appropriate subchondral support and maintenance of reduction and fixation of the?distal?radius fracture.? ?I then turned my attention proximally and then I screwed in the locking guides for my final to screws proximally these were then subsequently drilled measured and appropriate length locking screws were then placed proximally with excellent fixation and locking technology into the plate.? This completed my construct.? The peek guide was subsequently removed and final imaging of the left?distal?radius open reduction internal fixation was taken of AP lateral as well and is orthogonal imaging.? I then took a inclination view which showed my?radial styloid screw was out of the penetration of the joint.? All my?distal?screws were appropriate length did not penetrate dorsal cortex and did not penetrate the joint.? This completed my fixation.? Smooth wrist range of motion was then noted with no evidence of clicking. Wrist was then taken through pronation supination and stressed the DRUJ which was found to be stable.? The wound was then thoroughly irrigated.? Tourniquet was then subsequently deflated.? Hemostasis satisfactory with bipolar electrocautery.? I then subsequently placed interrupted 3-0 Vicryl sutures for subcutaneous tissue and then subsequently placed a nylon the skin for closure.? Incision was then dressed with Xeroform 4 x 4's Kerlix cast padding and a volar Ortho-Glass splint was then applied with Baltazar wrap and placed in a sling.? Disposition: Patient taken to PACU in stable condition recovering well receive appropriate discharge instructions as well as pain medication postoperatively.? Maintain splint until follow-up.? Nonweightbearing to operative upper extremity We will follow-up with Ortho in the office in 2 weeks.? If any questions or concerns feel free to contact the office.
--- NOTE | 2024-10-07 10:59 | W.PM.BPON ---
Date of Procedure: 10/07/2024 Surgeon: Saturnino Clemons DO [employer] Officer(s): Alexi Clemons PA-C Procedure(s) performed: Left distal radius open reduction internal fixation 2 part intra-articular Findings of the procedure(s): Underwent procedure as planned without issues or complications Estimated blood loss: 10 mL Specimen(s) removed: None Post-operative diagnosis: Left distal radius fracture 2 part intra-articular
--- NOTE | 2024-10-07 11:07 | P.PCN_ITS ---
PACU note Narrative: Patient is a 33-year-old female that just underwent a left distal radius ORIF. Patient transferred to PACU in stable condition. Pain is well controlled. Dressing on hand is dry and in place. Patient's fingers are warm and well- perfused. normal cap refill under 2 seconds. Unable to perform any further assessment on motor or sensory due to residual block. Exam: somnolent, arousable Disposition: discharged
--- NOTE | 2024-10-07 12:05 | ANE.PACU2 ---
Inpatient post-anesthesia follow up: Airway intact: Yes Vital signs: Temperature 98.7 F Pulse Rate 77 Respiratory Rate 18 Blood Pressure 158/86 Pulse Oximetry 96 Oxygen Delivery Me thod Room Air Oxygen Flow Rate Fraction of Inspir ed Oxygen Hydration adequate: Yes Nausea and vomiting: No Pain level: 1 Mental status: Baseline
--- NOTE | 2024-10-07 12:41 | SUR.PHASEII ---
Patient is ready to discharge, in room waiting of meds to beds
== END 2024-10-07 12:50 | disposition home or self-care (01) ==
PROVIDERS: Student in an Organized Health Care Education/Training Program; PCP Family Medicine; Visit Provider Student in an Organized Health Care Education/Training Program
PROC: (CPT 25608; principal; 2024-10-07 09:50)
DX: S52.502A Unspecified fracture of the lower end of left radius, initial encounter for closed fracture (principal); X58.XXXA Exposure to other specified factors, initial encounter; K21.9 Gastro-esophageal reflux disease without esophagitis; F41.9 Anxiety disorder, unspecified; G40.909 Epilepsy, unspecified, not intractable, without status epilepticus; F32.A Depression, unspecified
CPT/HCPCS: 25608; 73110; 76000; 80048; 81025; C1713; J0131; J0690; J1100; J1885; J2250; J2405; J2704; J3010; J7030; J9999

== ENCOUNTER → 2024-10-22 11:52 | Outpatient (BNVA) | payer MEDICAID, SELFPAY | PROVIDERS: PCP Family Medicine; Visit Provider Physician Assistant | DX: S52.502D Unspecified fracture of the lower end of left radius, subsequent encounter for closed fracture with routine healing (principal); X58.XXXD Exposure to other specified factors, subsequent encounter; Z98.890 Other specified postprocedural states | CPT/HCPCS: 73110 ==

== ENCOUNTER 2024-10-22 12:30 | Outpatient (CLI) | payer MEDICAID, SELFPAY | END 2024-10-22 12:31 | disposition home or self-care (01) | LOC: SOT 12:30 | PROVIDERS: PCP Family Medicine; Visit Provider Physician Assistant | DX: Z46.89 Encounter for fitting and adjustment of other specified devices (principal); S52.502A Unspecified fracture of the lower end of left radius, initial encounter for closed fracture; W19.XXXA Unspecified fall, initial encounter | CPT/HCPCS: 97760; L3906 ==

== ENCOUNTER → 2024-11-05 10:20 | Outpatient (BNVA) | payer MEDICAID, SELFPAY | PROVIDERS: PCP Family Medicine; Visit Provider Physician Assistant | DX: Z98.890 Other specified postprocedural states (principal); Z87.81 Personal history of (healed) traumatic fracture | CPT/HCPCS: 73110; 99024 ==

== ENCOUNTER → 2024-11-23 10:38 | Outpatient (BNVA) | payer MEDICAID, SELFPAY | PROVIDERS: PCP Family Medicine; Visit Provider Physician Assistant | DX: Z98.890 Other specified postprocedural states (principal); Z87.81 Personal history of (healed) traumatic fracture | CPT/HCPCS: 73110; 99024 ==

== ENCOUNTER → 2024-12-21 10:33 | Outpatient (BNVA) | payer MEDICAID, SELFPAY | PROVIDERS: PCP Family Medicine; Visit Provider Physician Assistant | DX: Z98.890 Other specified postprocedural states (principal) | CPT/HCPCS: 73110; 99024 ==